=== PATIENT | male | born 1975 | race Two or more races ===

== ENCOUNTER 2016-12-10 13:05 | Emergency (ER) | payer SELFPAY ==
[2016-12-10 13:07] VITALS: BP 131/84; PULSE 84; RESP 16; TEMP 98.9; O2SAT 98
[2016-12-10] MEDS ORDERED: KETOROLAC TROMETHAMINE 30 MG/ML (IVP) VIAL IVP ONE (13:30)
[2016-12-10] MEDS ORDERED: SODIUM CHLOR 0.9% 1000 ML INJ 1,000 ML IV ONE (13:30)
[2016-12-10] MEDS ORDERED: SODIUM CHLORIDE 0.9% FLUSH 10 ML FLUSH IVF PRN (13:30)
--- NOTE | 2016-12-10 13:31 | PD ---
HPI Chief Complaint: Abdominal Pain Time Seen by Provider: 13:25 Travel History International Travel<30 days: No Contact w/Intl Traveler<30days: No Traveled to known affect area: No History of Present Illness HPI This a 41-year-old gentleman with a history of left sided kidney stone, who presents today with complaints of left sided lateral abdominal pain. The patient denies any fevers, chills. Patient denies any dysuria, frequency. He reports his bowel movements been normal. The patient also reports no nausea or vomiting. The patient states that he had similar pain 4 years ago and was told he had a stone in his kidney. There are no other complaints the time of my examination. PFSH Social History Tobacco Use: No (patient denies.) Allergies-Medications (Allergen,Severity, Reaction): Coded Allergies: No Known Allergies (Unverified , 12/10/16) Reported Meds & Prescriptions Reported Meds & Active Scripts Active Naprosyn (Naproxen) 500 Mg Tab 500 Mg PO BID Review of Systems Except as stated in HPI: all other systems reviewed are Neg HENT: No: Headaches, Lightheadedness Cardiovascular: No: Chest Pain or Discomfort Gastrointestinal: Positive: Abdominal Pain (left sided), No: Nausea Genitourinary: No: Urgency, Dysuria, Hematuria (denies) Musculoskeletal: No: Myalgias, Pain (denies flank pain) Skin: No Rash, No Itching Neurologic: No: Weakness, Headache Physical Exam Narrative GENERAL: Well-nourished, well-developed patient. SKIN: Focused skin assessment warm/dry. HEAD: Normocephalic/atraumatic. EYES: No scleral icterus. No injection or drainage. NECK: Supple, trachea midline. CARDIOVASCULAR: Regular rate and rhythm without murmurs, gallops, or rubs. RESPIRATORY: Breath sounds equal bilaterally. No accessory muscle use. GASTROINTESTINAL: Abdomen soft, non-tender, nondistended. The patient reports subjective pain in his left lateral abdomen. There is no rebound or guarding noted. MUSCULOSKELETAL: No cyanosis, or edema. BACK: No CVA tenderness. NEUROLOGICAL: Awake and alert. Cranial nerves II through XII intact. Motor grossly within normal limits. Five out of 5 muscle strength in all muscle groups. Normal speech. Data Data Last Documented VS Vital Signs Date Time Temp Pulse Resp B/P Pulse Ox O2 Delivery O2 Flow Rate FiO2 12/10/16 15:44 16 12/10/16 15:00 62 117/68 97 Room Air 12/10/16 13:07 98.9 Orders Complete Blood Count With Diff (12/10/16 13:25) Urinalysis - C+S If Indicated (12/10/16 13:25) Iv Access Insert/Monitor (12/10/16 13:25) Ketorolac Inj (Toradol Inj) (12/10/16 13:30) Sodium Chloride 0.9% Flush (Ns Flush) (12/10/16 13:30) Sodium Chlor 0.9% 1000 Ml Inj (Ns 1000 M (12/10/16 13:30) Comprehensive Metabolic Panel (12/10/16 13:31) Lipase (12/10/16 13:31) Ct Abd/Pel W/O Iv Contrast (12/10/16 15:17) Labs Laboratory Tests Test 12/10/16 12/10/16 13:20 13:50 White Blood Count 10.7 TH/MM3 Red Blood Count 4.33 MIL/MM3 Hemoglobin 13.2 GM/DL Hematocrit 38.6 % Mean Corpuscular Volume 89.0 FL Mean Corpuscular Hemoglobin 30.6 PG Mean Corpuscular Hemoglobin 34.3 % Concent Red Cell Distribution Width 12.7 % Platelet Count 333 TH/MM3 Mean Platelet Volume 7.5 FL Neutrophils (%) (Auto) 71.3 % Lymphocytes (%) (Auto) 17.3 % Monocytes (%) (Auto) 10.5 % Eosinophils (%) (Auto) 0.4 % Basophils (%) (Auto) 0.5 % Neutrophils # (Auto) 7.7 TH/MM3 Lymphocytes # (Auto) 1.9 TH/MM3 Monocytes # (Auto) 1.1 TH/MM3 Eosinophils # (Auto) 0.0 TH/MM3 Basophils # (Auto) 0.1 TH/MM3 CBC Comment DIFF FINAL Differential Comment Sodium Level 137 MEQ/L Potassium Level 3.6 MEQ/L Chloride Level 103 MEQ/L Carbon Dioxide Level 27.9 MEQ/L Anion Gap 6 MEQ/L Blood Urea Nitrogen 11 MG/DL Creatinine 1.19 MG/DL Estimat Glomerular Filtration 68 ML/MIN Rate Random Glucose 129 MG/DL Calcium Level 8.8 MG/DL Total Bilirubin 0.4 MG/DL Aspartate Amino Transf 20 U/L (AST/SGOT) Alanine Aminotransferase 26 U/L (ALT/SGPT) Alkaline Phosphatase 82 U/L Total Protein 7.7 GM/DL Albumin 3.3 GM/DL Lipase 65 U/L Urine Color YELLOW Urine Turbidity CLEAR Urine pH 5.5 Urine Specific [place] 1.029 Urine Protein TRACE mg/dL Urine Glucose (UA) NEG mg/dL Urine Ketones NEG mg/dL Urine Occult Blood NEG Urine Nitrite NEG Urine Bilirubin NEG Urine Urobilinogen LESS THAN 2.0 MG/DL Urine Leukocyte Esterase NEG Urine RBC 2 /hpf Urine WBC 4 /hpf Urine Squamous Epithelial <1 /hpf Cells Urine Calcium Oxalate Crystals OCC /hpf Urine Mucus FEW /lpf Microscopic Urinalysis Comment CULT NOT INDICATED MDM Medical Decision Making Medical Screen Exam Complete: Yes Emergency Medical Condition: Yes Interpretation(s) Last 24 hours Impressions Abdomen/Pelvis CT 12/10/16 1517 Signed Impressions: Service Date/Time: Monday, December 10, 2016 16:34 - CONCLUSION: 1. No renal calculi or obstructive uropathy identified. Large gallstone in gallbladder without ductal dilatation. 2. Low attenuation material in the left inguinal canal measuring up to around 2 cm in diameter. This may represent some complex fluid associated with some mild edematous changes. No herniation of bowel or incarceration or obstruction. Vikram Montalvo MD Differential Diagnosis Left ureteral calculus versus diverticulitis versus gastroenteritis versus pen decided Narrative Course 41-year-old male presents with left sided abdominal discomfort. The patient has a history of renal calculi. The patient does have calcium oxalate crystals in his urine. CT scan of the and pelvis without contrast showed no evidence of renal calculi. There was one single gallstone in his gallbladder that was not obstructing the duct. The patient also had a inguinal hernia that had no evidence of bowel noted. The patient states that he's had a hernia for 3 years. She's been given Toradol one dose I V and states his pain is much improved. He'll be discharged with a prescription for Naprosyn. He's been instructed to wear tight jockey shorts for support for his hernia. He is instructed return of he does any worsening pain, fevers chills, or any other reason. Diagnosis Primary Impression: Left sided abdominal pain Additional Impressions: single gallstone in gallbladder Reducible left inguinal hernia Additional Instructions: Return if increased pain, fevers chills, nausea vomiting diarrhea, or any other reason that concerned her. Med/Other Pt SpecificInfo: Prescription(s) given Scripts Naproxen (Naprosyn)500 Mg [id number] Mg PO BID #30 TAB Ref 0 Prov:Jasper Levine MD 12/10/16 Disposition: 01 DISCHARGE HOME Condition: Stable Jasper Levine MD Dec 10, 2016 13:31
[2016-12-10 13:53] LABS: AUTOMATED NEUTROPHIL # 7.7 TH/MM3 (1.8-7.7); BASOPHIL # 0.1 TH/MM3 (0-0.2); BASOPHIL % 0.5 % (0.0-2.0); EOSINOPHIL % 0.4 % (0.0-4.0); HEMATOCRIT 38.6 % (39.0-51.0); HEMO FLAGS DIFF FINAL; LYMPH % 17.3 % (9.0-44.0); LYMPHOCYTE # 1.9 TH/MM3 (1.0-4.8); MEAN CORPUSCULAR HEMOGLOBIN 30.6 PG (27.0-34.0); MEAN CORPUSCULAR HGB CONC 34.3 % (32.0-36.0); MONO % 10.5 % (0.0-8.0); NEUT % 71.3 % (16.0-70.0); PLATELET COUNT 333 TH/MM3 (150-450); RED BLOOD COUNT 4.33 MIL/MM3 (4.50-5.90); RED CELL DISTRIBUTION WIDTH 12.7 % (11.6-17.2); WHITE BLOOD COUNT 10.7 TH/MM3 (4.0-11.0)
[2016-12-10 14:22] LABS: ALKALINE PHOSPHATASE 82 U/L (45-117); ALT (GPT) 26 U/L (12-78); ANION GAP 6 MEQ/L (5-15); AST (GOT) 20 U/L (15-37); BICARBONATE 27.9 MEQ/L (21.0-32.0); BLOOD UREA NITROGEN 11 MG/DL (7-18); CHLORIDE 103 MEQ/L (98-107); GLOMERULAR FILTRATION RATE 68 ML/MIN (>89); POTASSIUM 3.6 MEQ/L (3.5-5.1); SODIUM (NA) 137 MEQ/L (136-145); TOTAL BILIRUBIN ADULT 0.4 MG/DL (0.2-1.0)
[2016-12-10 14:34] LABS: BLOOD, URINE NEG (NEG); CALCIUM OXALATE CRYSTALS,URINE OCC /hpf; COMMENT (UR) CULT NOT INDICATED; CULTURE IF INDICATED CULT NOT INDICATED; GLUCOSE,URINE NEG (NEG); KETONE, URINE NEG (NEG); MUCUS URINE FEW /lpf (OCC); NITRITE,URINE NEG (NEG); PH, URINE 5.5 (5.0-8.5); SQUAMOUS EPITHELIAL CELL URINE <1 /hpf (0-5); URINE COLOR YELLOW (YELLW/STRAW)
[2016-12-10 15:00] VITALS: BP 117/68; PULSE 62; RESP 16; O2SAT 97
[2016-12-10 15:44] VITALS: RESP 16
--- NOTE | 2016-12-10 17:07 | RADRPT ---
EXAM DATE/TIME: 12/10/2016 16:34 [facility] COMPARISON: No previous studies available for comparison. INDICATIONS : Left lower quadrant pain. ORAL CONTRAST: No oral contrast ingested. RADIATION DOSE: 13.28 CTDIvol (mGy) MEDICAL HISTORY : Renal calculi. Diverticulitis. SURGICAL HISTORY : None. ENCOUNTER: Initial ACUITY: 2 days PAIN SCALE: 7/10 LOCATION: Left lower quadrant TECHNIQUE: Volumetric scanning of the abdomen and pelvis was performed. Using automated exposure control and ad justment of the mA and/or kV according to patient size, radiation dose was kept as low as reasonably achievable to obtain optimal diagnostic quality images. FINDINGS: There is dependent atelectasis at the lung bases. No significant abnormality in the liver, spleen, ad renals, kidneys or pancreas. Large gallstone in gallbladder. There is fluid attenuation extending into the left inguinal canal measuring 2 cm in diameter. No eddy iation of bowel is identified. No acute bony abnormalities. CONCLUSION: 1. No renal calculi or obstructive uropathy identified. Large gallstone in gallbladder without ductal dilatation. 2. Low attenuation material in the left inguinal canal measuring up to around 2 cm in diameter. This may represent some complex fluid associated with some mild edematous changes. No herniation of bowel or incarceration or obstruction. Vikram Montalvo MD on December 10, 2016 at 17:01 Board Certified Radiologist. This report was verified electronically.
[2016-12-10] MEDS ORDERED: NAPR500 PO (17:35)
[2016-12-10 17:54] VITALS: BP 119/74
== END 2016-12-10 18:06 | disposition home or self-care (01) ==
LOC: NEPE 13:05
DX: R10.9 Unspecified abdominal pain (principal); K80.80 Other cholelithiasis without obstruction; K40.90 Unilateral inguinal hernia, without obstruction or gangrene, not specified as recurrent; Z87.442 Personal history of urinary calculi
CPT/HCPCS: 74176; 80053; 81001; 83690; 85025; 96361; 96374; 99284; J1885; J7030